=== PATIENT | male | born 1990 | race American Indian/Alaskan Native ===

== ENCOUNTER 2017-07-04 02:18 | Emergency (ER) | payer MEDICAID ==
--- NOTE | 2017-07-04 03:41 | Emergency Department Report ---
ED General Adult HPI - General Chief complaint: Medical Clearance Stated complaint: MH EVAL/NO SLEEP X 2 DAYS Time Seen by Provider: 07/04/17 03:37 Source: EMS Mode of arrival: Stretcher Limitations: No Limitations - History of Present Illness Initial comments: 26 male rock by EMS after mother wanted him evaluated for poor sleep habits. He arrives at his baseline mental status eyes open verbal smiling with normal vital signs without any signs of trauma patient is smiling and relates no other complaints. -: unknown Associated Symptoms: denies: confusion, chest pain, cough, diaphoresis, fever/ chills, headaches, loss of appetite, malaise, nausea/vomiting, rash, seizure, shortness of breath, syncope, weakness ED Review of Systems ROS: Stated complaint: MH EVAL/NO SLEEP X 2 DAYS Other details as noted in HPI Comment: Unobtainable due to pts medical conditions ED Past Medical Hx - Past Medical History Previous Medical History?: No - Surgical History Past Surgical History?: No - Social History Smoking Status: Never Smoker Substance Use Type: None ED Physical Exam - General Limitations: No Limitations General appearance: alert, in no apparent distress - Head Head exam: Present: atraumatic, normocephalic - Eye Eye exam: Present: normal appearance, PERRL, EOMI - ENT ENT exam: Present: normal exam, normal orophraynx, TM's normal bilaterally - Neck Neck exam: Present: normal inspection. Absent: tenderness, meningismus - Respiratory Respiratory exam: Present: normal lung sounds bilaterally. Absent: respiratory distress, wheezes, rales, rhonchi, stridor, chest wall tenderness, accessory muscle use, decreased breath sounds, prolonged expiratory - Cardiovascular Cardiovascular Exam: Present: regular rate, normal rhythm, normal heart sounds - GI/Abdominal GI/Abdominal exam: Present: soft. Absent: distended, tenderness, guarding, rebound, rigid, mass, bruit, pulsatile mass - Extremities Exam Extremities exam: Present: normal inspection, normal capillary refill. Absent: tenderness, pedal edema, joint swelling, calf tenderness - Back Exam Back exam: Present: normal inspection. Absent: CVA tenderness (L), muscle spasm , paraspinal tenderness, vertebral tenderness - Neurological Exam Neurological exam: Present: alert, other (alert and awake, nl airway) - Psychiatric Psychiatric exam: Present: other (baseline mental status) ED Course Vital Signs 07/04/17 03:24 Respiratory 18 Rate O2 Sat by Pulse 99 Oximetry ED Medical Decision Making - Medical Decision Making Patient does appear to be at baseline he is here for stable for outpatient follow-up normal physical exam vital signs. Family will be given referral to outpatient mental health for further assessment of patient's insomnia Critical care attestation.: If time is entered above; I have spent that time in minutes in the direct care of this critically ill patient, excluding procedure time. ED Disposition Clinical Impression: History of insomnia Disposition: DC-01 TO HOME OR SELFCARE Is pt being admited?: No Condition: Stable Instructions: Insomnia (ED), Autism (ED) Referrals: OMAR MORALES MD [Primary Care Provider] - 3-5 Days Time of Disposition: 03:51
[2017-07-05 11:43] VITALS: BP 120/61
== END 2017-07-05 11:42 | disposition home or self-care (01) ==
LOC: ED 02:18
DX: G47.00 Insomnia, unspecified (principal)
CPT/HCPCS: 99284

== ENCOUNTER 2018-06-02 20:05 | Emergency (ER) | payer MEDICAID ==
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
[2018-06-02 21:13] LABS: Basophils % (Auto) 0.3 % (0.0-1.8); Eosinophils # (Auto) 0.4 K/mm3 (0.0-0.4); Eosinophils % (Auto) 4.4 % (0.0-4.3); Hematocrit 45.7 % (35.5-45.6); Hemoglobin 14.9 gm/dl (11.8-15.2); Lymphocytes # (Auto) 1.8 K/mm3 (1.2-5.4); Lymphocytes % (Auto) 20.4 % (13.4-35.0); Mean Corpuscular HGB Conc 33 % (32-34); Mean Corpuscular Volume 87 fl (84-94); Monocytes # (Auto) 0.9 K/mm3 (0.0-0.8); Monocytes % (Auto) 10.2 % (0.0-7.3); Platelet Count 218 K/mm3 (140-440); Red Blood Count 5.24 M/mm3 (3.65-5.03); Red Cell Distribution Width 13.7 % (13.2-15.2)
[2018-06-02 21:32] LABS: BUN/Creatinine Ratio 6; Blood Urea Nitrogen 5 mg/dL (9-20); Calcium 9.8 mg/dL (8.4-10.2); Hemolysis Index 9
[2018-06-02 23:16] LABS: Bilirubin,Urine NEG (Negative); Blood,Urine NEG (Negative); Color,Urine Colorless (Yellow); Protein,Urine <15 mg/dL mg/dL (Negative); Urobilinogen,Urine < 2.0 mg/dL (<2.0)
[2018-06-02 23:23] LABS: Amphetamine Screen,Urine PRESUMPTIVE NEGATIVE; Benzodiazepines Screen,Urine PRESUMPTIVE NEGATIVE; Cannabinoid Screen,Urine PRESUMPTIVE NEGATIVE; Cocaine Screen,Urine PRESUMPTIVE NEGATIVE; Methadone Screen,Urine PRESUMPTIVE NEGATIVE; Opiate Screen,Urine PRESUMPTIVE NEGATIVE
[2018-06-02 23:39] LABS: RBC,Urine < 1.0 /HPF (0.0-6.0); WBC,Urine < 1.0 /HPF (0.0-6.0)
--- NOTE | 2018-06-03 16:11 | Consultation ---
History of Present Illness - Reason for Consult Consult date: 06/03/18 Reason for consult: psychiatric evaluation - Chief Complaint Chief complaint: "hey" - History of Present Psychiatric Illness Tao is a 27-year-old male presents emergency room with complaints of homicidal ideations and aggressive behavior. He lives with his father and according to the record, he cannot return home. Tao has a history of autism. He has been calm and quiet in the ER. He makes eye contact but does not have meaningful responses to questions. He smiles and intermittently laughs during attempts to interview him. The number listed on the patient summary is the wrong number. Medications and Allergies Allergies Allergy/AdvReac Type Severity Reaction Status Date / Time Unable to Assess Allergy Unverified 07/04/17 09:14 Home Medications Medication Instructions Recorded Confirmed Last Taken Type Divalproex ER [Depakote ER] 500 mg PO BID 06/02/18 06/02/18 Unknown History chlorproMAZINE [Thorazine] 25 mg PO QDAY 06/02/18 06/02/18 Unknown History risperiDONE [RisperDAL] 1 mg PO QDAY 06/02/18 06/02/18 Unknown History Past psychiatric history - Past Medical History Past Medical History: other (unk) - past Psychiatric treatment and history psychiatric treatment history: Autism spectrum disorder - Social History Social history: lives with family Mental Status Exam - Vital signs Last Vital Signs Temp 98.4 F 06/03/18 08:00 Pulse 104 H 06/03/18 08:00 Resp 20 06/03/18 08:00 BP 152/101 06/03/18 08:00 Pulse Ox 99 06/03/18 08:00 - Exam Narrative exam: unable to assess mood, thought process/thought content, perceptual disturbance, SI/HI, memory. insight and judgment appear to be impaired. Orientation: person Affect: other (smiling, laughing) Results Result Diagrams: 06/02/18 20:55 06/02/18 20:55 Abnormal lab results 06/02/18 06/02/18 06/02/18 Range/Units 20:55 20:55 20:55 RBC (3.65-5.03) M/mm3 Hct (35.5-45.6) % [place] % (Auto) (0.0-7.3) % Eos % (Auto) (0.0-4.3) % [place] # (0.0-0.8) K/mm3 BUN 5 L (9-20) mg/dL Glucose 113 H (75-100) mg/dL Urine pH (5.0-7.0) Ur Specific [place] (1.003-1.030) Salicylates < 0.3 L (2.8-20.0) mg/dL Acetaminophen < 5.0 L (10.0-30.0) ug/mL 06/02/18 06/02/18 Range/Units 20:55 22:40 RBC 5.24 H (3.65-5.03) M/mm3 Hct 45.7 H (35.5-45.6) % [place] % (Auto) 10.2 H (0.0-7.3) % Eos % (Auto) 4.4 H (0.0-4.3) % [place] # 0.9 H (0.0-0.8) K/mm3 BUN (9-20) mg/dL Glucose (75-100) mg/dL Urine pH 8.0 H (5.0-7.0) Ur Specific [place] 1.002 L (1.003-1.030) Salicylates (2.8-20.0) mg/dL Acetaminophen (10.0-30.0) ug/mL All other labs normal. Assessment and Plan Assessment and plan: Impression: autism spectrum disorder aggression and homicidal ideation reported as his reason for being in the ER consider co-morbid psychotic disorder Recommendation: reconcile home meds the record indicates he might be on depakote 500mg bid, risperdal, and thorazine. a depakote level has been ordered -Order placed for risperdal 1mg hs. Risperdal is used to treat aggression in ASD in addition to mood & psychotic disorders. will staff with Dr. Rip Price
--- NOTE | 2018-06-04 12:03 | Progress Note ---
Subjective - Reason for Consult Consult date: 06/04/18 Reason for consult: Psychiatry Follow-up - Chief Complaint Chief complaint: 'hello" 27-year-old AA male presents emergency room with complaints of homicidal ideations and aggressive behavior. Today the patient is calm and cooperative during the assessment. He was able to answer some questions when asked. He denies SI/HI's. Per the staff, no behavioral disturbances overnight. Mental Status Exam - Vital signs Last Vital Signs Temp 98.2 F 06/04/18 08:00 Pulse 96 H 06/04/18 08:00 Resp 18 06/04/18 08:00 BP 116/79 06/04/18 08:00 Pulse Ox 97 06/04/18 08:00 - Exam Narrative exam: MSE: Appearance: calm, cooperative Behavior: regular eye contact Speech: regular rate and tone Mood: unable to assess Affect: flat Thought Process: unable to assess l Thought Content: denies SI/HI's Motor Activity: sitting up in bed Cognition: alert Insight: unable to assess Judgment: unable to assess Assessment and Plan Impression: Autism Spectrum DO. Recommendation/Plan: Reevaluate 1013 in 24 hours and gather collateral i nformation. Medication will be started once collateral information is gathered. Case mgmt involvement, the patient may need assistance with placement. Dispo: Once collateral information is gathered, proper dispo will be determined. Will staff with Dr Plummer.
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
[2018-06-05 13:55] LABS: Alanine Aminotransferase 17 units/L (7-56)
[2018-06-05] MEDS ORDERED: RisperDAL ONE (21:08)
[2018-06-05] MEDS: RisperDAL PO SCH (22:25)
[2018-06-06] MEDS: RisperDAL PO SCH (22:10)
[2018-06-07] MEDS: RisperDAL PO SCH (22:00)
[2018-06-08] MEDS: RisperDAL PO SCH (22:12)
[2018-06-09 13:44] VITALS: BP 152/91
--- NOTE | 2018-06-09 14:04 | Emergency Department Report ---
Blank Doc - Documentation Documentation: Patient is a 27-year-old autistic gentleman who is awaiting placement for beha vior issues. Patient's 1013 has been rescinded. Patient is calm and our T with social work is placed the patient at a assisted that specializes in autistic care. Patient be discharged home at this time.
== END 2018-06-09 17:54 | disposition home or self-care (01) ==
LOC: ED 20:05 → EEVIPCON 20:05 → ED 06-09 17:54
DX: R45.850 Homicidal ideations (principal); R44.0 Auditory hallucinations; R44.1 Visual hallucinations; R46.89 Other symptoms and signs involving appearance and behavior
CPT/HCPCS: 36415; 80048; 80164; 80307; 81001; 82150; 83690; 84075; 84450; 84460; 85025; 99285; G0480; 80320

== ENCOUNTER 2018-07-27 12:30 | Emergency (ER) | payer MEDICAID ==
--- NOTE | 2018-07-27 13:03 | Emergency Department Report ---
Blank Doc - Documentation Documentation: This is a 27-year-old male that presents with medical clearance. Patients sis ter stated he was missing for the past few days. This initial assessment/diagnostic orders/clinical plan/treatment(s) is/are subject to change based on patient's health status, clinical progression and re- assessment by fellow clinical providers in the ED. Further treatment and workup at subsequent clinical providers discretion. Patient/guardians urged not to elope from the ED as their condition may be serious if not clinically assessed and managed. Initial orders include: 1- Patient sent to [facility] for further evaluation and treatment
--- NOTE | 2018-07-27 14:14 | Emergency Department Report ---
ED Medical Clearance HPI - General Chief complaint: Medical Clearance Stated complaint: CHECKUP Time Seen by Provider: 07/27/18 13:02 Source: family Mode of arrival: Ambulatory Limitations: Other ([employer]) - History of Present Illness Initial comments: This is a 27-year-old -Citizen Of [place] male accompanied by his sister for medical clearance. The sister states patient is autistic and was missing for 2 weeks. He states he ran away from home because he didn't like it there. This just needs she couldn't find him for 2 days so she put it in his picture on Facebook and several people inform patient was [facility]. She just picked patient up today and wanted to make sure he was cleared to go home and take a bath. Patient denies suicidal ideation or homicidal ideation, chest pain, shortness of breath, nausea or vomiting, palpitations, or injury. MD Complaint: medical clearance request Onset/Timin -: week(s) Place: street Alledged Intoxication: No Compliant with Home Medications: No (Off MEDICATION for 2 weeks) Traumatic Symptoms: denies traumatic injury Treatments Prior to Arrival: none Home medications: Home Medications Medication Instructions Recorded Confirmed Last Taken Divalproex ER [Depakote ER] 500 mg PO BID 06/02/18 06/02/18 Unknown chlorproMAZINE [Thorazine] 25 mg PO QDAY 06/02/18 06/02/18 Unknown risperiDONE [RisperDAL] 1 mg PO QDAY 06/02/18 06/02/18 Unknown Allergies/Adverse reactions: Allergies Allergy/AdvReac Type Severity Reaction Status Date / Time No Known Allergies Allergy Unverified 07/27/18 12:37 ED Review of Systems ROS: Stated complaint: CHECKUP Other details as noted in HPI Constitutional: denies: chills, fever Respiratory: denies: cough, shortness of breath, wheezing Cardiovascular: denies: chest pain, palpitations Gastrointestinal: denies: abdominal pain, nausea, diarrhea Musculoskeletal: denies: back pain, joint swelling, arthralgia Skin: denies: rash, lesions Neurological: denies: headache, weakness, paresthesias Psychiatric: denies: anxiety, depression ED Past Medical Hx - Past Medical History Previous Medical History?: Yes Hx Psychiatric Treatment: Yes Additional medical history: Autism - Surgical History Past Surgical History?: No - Social History Smoking Status: Never Smoker Substance Use Type: None - Medications Home Medications: Home Medications Medication Instructions Recorded Confirmed Last Taken Type Divalproex ER [Depakote ER] 500 mg PO BID 06/02/18 06/02/18 Unknown History chlorproMAZINE [Thorazine] 25 mg PO QDAY 06/02/18 06/02/18 Unknown History risperiDONE [RisperDAL] 1 mg PO QDAY 06/02/18 06/02/18 Unknown History ED Physical Exam - General Limitations: No Limitations General appearance: alert, in no apparent distress - Respiratory Respiratory exam: Present: normal lung sounds bilaterally. Absent: respiratory distress - Cardiovascular Cardiovascular Exam: Present: regular rate, normal rhythm. Absent: systolic murmur, diastolic murmur, rubs, gallop - GI/Abdominal GI/Abdominal exam: Present: soft, normal bowel sounds - Neurological Exam Neurological exam: Present: alert, oriented X3, normal gait - Psychiatric Psychiatric exam: Present: normal affect, normal mood - Skin Skin exam: Present: warm, dry, intact, normal color. Absent: rash ED Course Vital Signs 07/27/18 07/27/18 13:02 14:22 Temperature 98.4 F 99 F Pulse Rate 120 H 123 H Respiratory 16 Rate Blood Pressure 113/79 136/84 [Left] O2 Sat by Pulse 98 98 Oximetry ED Medical Decision Making - Medical Decision Making Patient was examined by me. Vitals are normal and patient is in no acute distress. Patient denies SI/HI. Normal focal exam. Patient is slightly tachycardic but off of Risperdal, depakote, and Thorazine for 2 weeks. Con sulted with attending. I don't feel patient is in sepsis or arrhythmia. Patient will be discharged home with sister. They both agree with ER plan. Patient discharged home in stable condition. Follow up with PCP in 2-3 days. ED Disposition Clinical Impression: Physically well but worried Disposition: DC-01 TO HOME OR SELFCARE Is pt being admited?: No Does the pt Need Aspirin: No Condition: Stable Additional Instructions: Return to the ER if thoughts of harming self or others, chest pain, or difficulty breathing. Referrals: PAU RAMIREZ MD [Primary Care Provider] - 3-5 Days [facility] [Outside] - 3-5 Days [facility] [Outside] - 3-5 Days Forms: Accompanied Note Time of Disposition: 14:15
[2018-07-27 14:23] VITALS: BP 136/84
== END 2018-07-27 14:37 | disposition home or self-care (01) ==
LOC: ED 12:30
DX: F84.0 Autistic disorder (principal)
CPT/HCPCS: 99282